=== PATIENT | female | born 2000 | race Two or more races ===

== ENCOUNTER 2024-08-13 16:56 | Emergency (ER) | payer OTHER ==
[~2024-08-13] VITALS: Ht 180.3 cm; Wt 83.9 kg
[2024-08-13] MEDS ORDERED: DIALYVITE 800800 MCG PO (18:07)
[2024-08-13 19:32] LABS: PH,URINE 5.5 (5.0-8.0); URINE APPEARANCE Clear; URINE BILIRRUBIN Negative (NEGATIVE); URINE BLOOD Large; URINE COLOR Yellow; URINE GLUCOSE Negative (NEGATIVE); URINE KETONE Negative (NEGATIVE); URINE LEUKOCYTE Moderate; URINE NITRATE Negative; URINE PROTEIN Negative (NEGATIVE); URINE UROBILINOGEN 0.2 E.U./dl
[2024-08-13 19:33] LABS: BASO % 0.2 % (0.1-1.2); EOS # 0.03 (0.04-0.54); EOS % 0.2 % (0.7-7.0); HEMATOCRIT 39.1 % (34.1-44.9); HEMOGLOBIN 13.3 g/dL (11.2-15.7); LYMPH # 1.66 (1.18-3.74); LYMPH % 13.6 % (19.3-53.1); MONO # 0.53 (0.24-0.82); MONO % 4.3 % (4.7-12.5); NEUT # 9.93 (1.56-6.13); NEUT % 81.5 % (34.0-71.1); PLATELET COUNT 263 K/uL (163-369); RED BLOOD COUNT 4.58 M/uL (3.93-5.22); RED CELL DISTRIBUTION WIDTH 13.2 % (11.6-14.4)
== END 2024-08-13 22:20 | disposition home or self-care (01) ==
LOC: ER 17:08
PROVIDERS: General Practice
DX: O20.8 Other hemorrhage in early pregnancy (principal); Z3A.01 Less than 8 weeks gestation of pregnancy; Z93.9 Artificial opening status, unspecified; Z88.0 Allergy status to penicillin

== ENCOUNTER 2024-11-16 08:31 | Outpatient (CLI) | payer OTHER ==
[~2024-11-16 08:31] MED LIST: DIALYVITE 800800 MCG PO
== END 2024-11-16 08:32 | disposition home or self-care (01) ==
LOC: PRENATAL 08:31
PROVIDERS: ATTEND Obstetrics & Gynecology Maternal & Fetal Medicine
DX: O44.00 Complete placenta previa NOS or without hemorrhage, unspecified trimester (principal); Z3A.20 20 weeks gestation of pregnancy

== ENCOUNTER → 2025-02-08 13:45 | Outpatient (CLI) | payer OTHER | END | disposition home or self-care (01) | LOC: PRENATAL 13:45 | PROVIDERS: ATTEND Obstetrics & Gynecology Maternal & Fetal Medicine | DX: O26.843 Uterine size-date discrepancy, third trimester (principal); O36.8130 Decreased fetal movements, third trimester, not applicable or unspecified; Z3A.33 33 weeks gestation of pregnancy ==